=== PATIENT | female | born 1970 | race Caucasian/White ===

== ENCOUNTER → 2016-09-20 | Outpatient (CLI) | payer OTHER ==
[~2016-09-20] MED LIST: ACET-749 PO; AGM500 PO; ASCA500 PO; BCPILLS PO; DFL150 PO; IBUP600T44 PO
--- NOTE | 2016-09-21 14:08 | MAMMOGRAPHY REPORT ---
BILATERAL DIGITAL SCREENING MAMMOGRAM TOMOSYNTHESIS WITH CAD: 09/20/2016 CLINICAL HISTORY: Routine screening examination. TECHNIQUE: Breast tomosynthesis in addition to standard 2D mammography was performed. Current study was also evaluated with a Computer Aided Detection (CAD) system. COMPARISON: Comparison is made to exams dated: 09/17/2015 mammogram - [facility] a nd 02/22/[place] [facility] [place] BREAST COMPOSITION: The tissue of both breasts is extremely dense, which lowers the sensitivity of mammography. FINDINGS: No obvious mass, architectural distortion or cluster of new, suspicious microcalcificatio ns is seen. IMPRESSION: ACR BI-RADS CATEGORY 1: NEGATIVE There is no mammographic evidence of malignancy. A 1 year screening mammogram is recommended. The p atient will receive written notification of the results. Approximately 10% of breast cancers are not detected with mammography. A negative mammographic repor t should not delay biopsy if a clinically suggestive mass is present. Marva Mondragon M.D. ay/:09/20/2016 21:49:29 Operations Manager Station: Shala ANAYA(R)(Uday), [facility] letter sent: Normal 1/2 BI-RADS Code: ACR BI-RADS Category 1: Negative
== END | disposition home or self-care (01) ==
LOC: C.MAMM 11:12
PROVIDERS: ATTEND Obstetrics & Gynecology
DX: Z12.31 Encounter for screening mammogram for malignant neoplasm of breast (principal)

== ENCOUNTER → 2017-01-18 | Outpatient (CLI) | payer OTHER | END | disposition home or self-care (01) | LOC: C.PAPS 13:27 | PROVIDERS: ATTEND Obstetrics & Gynecology | DX: Z12.4 Encounter for screening for malignant neoplasm of cervix (principal) ==

== ENCOUNTER → 2017-10-30 | Outpatient (CLI) | payer BC ==
--- NOTE | 2017-10-31 15:16 | MAMMOGRAPHY REPORT ---
BILATERAL DIGITAL SCREENING MAMMOGRAM TOMOSYNTHESIS WITH CAD: 10/30/2017 CLINICAL HISTORY: Routine screening. Patient has no complaints. TECHNIQUE: Breast tomosynthesis in addition to standard 2D mammography was performed. Current study was also evaluated with a Computer Aided Detection (CAD) system. COMPARISON: Comparison is made to exams dated: 09/20/2016 mammogram, 09/17/2015 mammogram - [facility], and [facility]22/[place] [facility] [facility] BREAST COMPOSITION: The tissue of both breasts is extremely dense, which lowers the sensitivity of m ammography. FINDINGS: There is a cluster of microcalcifications in the upper outer middle one third of the left breast, for which additional spot magnification views are recommended. No other new suspicious mass, architectural distortion or cluster of microcalcifications is seen bila terally. IMPRESSION: ACR BI-RADS CATEGORY 0: INCOMPLETE EVALUATION: NEED ADDITIONAL IMAGING EVALUATION The cluster of microcalcifications in the left upper outer breast needs additional evaluation. The patient will be called to schedule an appointment. Approximately 10% of breast cancers are not detected with mammography. A negative mammographic report should not delay biopsy if a clinically suggestive mass is present. Marva Mondragon M.D. ay/:10/30/2017 16:04:07 Superintendent Communications: Korina ANAYA(Samson)(Uday)(JEANNINE), [facility] letter sent: Addl Imaging 0 BI-RADS Code: ACR BI-RADS Category 0: Incomplete Evaluation: Need Additional Imaging Evaluation
== END | disposition home or self-care (01) ==
LOC: C.MAMM 15:41
PROVIDERS: ATTEND Family Medicine
DX: Z12.31 Encounter for screening mammogram for malignant neoplasm of breast (principal); R92.0 Mammographic microcalcification found on diagnostic imaging of breast

== ENCOUNTER → 2017-11-09 | Outpatient (CLI) | payer BC ==
--- NOTE | 2017-11-09 15:17 | MAMMOGRAPHY REPORT ---
UNILATERAL LEFT DIGITAL DIAGNOSTIC MAMMOGRAM: 11/09/2017 CLINICAL HISTORY: Callback from screening mammogram for left breast calcifications. TECHNIQUE: Spot magnification left CC and ML views were obtained. COMPARISON: Comparison is made to exams dated: 10/30/2017 mammogram, 09/20/2016 mammogram, 09/17/2015 ma mmogram - [facility], and 02/22/2012 mammogram - [facility]. BREAST COMPOSITION: The tissue of the left breast is extremely dense, which lowers the sensitivity o f mammography. FINDINGS: There is a small 5 mm cluster of faint calcifications within the left upper outer quadrant which are new compared to prior exams. The calcifications differ slightly in shape and size and are somewhat linear in distribution. The calcifications are indeterminate and stereotactic biopsy is rec ommended for further evaluation. IMPRESSION: ACR BI-RADS CATEGORY 4: SUSPICIOUS New 5 mm cluster of calcifications in the left upper outer quadrant is indeterminate and stereotactic biopsy is recommended for further evaluation. The patient has been verbally notified of the results. She tentatively scheduled the biopsy before l eaving the department. Approximately 10% of breast cancers are not detected with mammography. A negative mammographic report should not delay biopsy if a clinically suggestive mass is present. Charito Abreu M.D. /:11/09/2017 10:32:39 Snowmobile Mechanic: Mayra Yun, [facility] letter sent: Abnormal 4/5 BI-RADS Code: ACR BI-RADS Category 4: Suspicious
== END | disposition home or self-care (01) ==
LOC: C.MAMM 10:13
PROVIDERS: ATTEND Family Medicine
DX: R92.0 Mammographic microcalcification found on diagnostic imaging of breast (principal)

== ENCOUNTER → 2017-12-01 | Outpatient (CLI) | payer BC ==
--- NOTE | 2017-12-01 10:40 | Discharge Instructions ---
Discharge Instructions Procedure Procedure Date: Dec 01, 2017. Reason for visit: Left Calcifications. Discharge Discharge Date: Dec 01, 2017. Discharge Diagnosis: status post breast biopsy Instructions Activity Recommendations: Additional Limitations (see below) Return to School/Work: no limitations Recommended Home Diet: No Limitations Provider Instructions: ACTIVITY RECOMMENDATIONS: * No lifting, pushing, pulling or exercising the affected side for three days. RETURN TO SCHOOL/WORK: * You may return to work/school after the procedure, but do not perform any strenuous activities for 24 to 48 hours. MEDICATIONS: * Tylenol (two 325 mg) every four to six hours if needed for mild pain (if not allergic to Tylenol). DIET: * Resume previous diet. SPECIAL CARE INSTRUCTIONS: * Keep biopsy site dry for 24 hours. May shower after 24 hours, but do not soak (bathe) incision. * May remove Tegaderm (plastic patch) tomorrow AFTER showering. * Leave the steri-strips on for one week. Allow the steri-strips to fall off by themselves. If not off after one week, you may remove them. You may place a Bandaid crosswise over the strips, if desired. * Apply ice 10 minutes on and 10 minutes off as needed. * Wear a bra at bedtime to sleep more comfortably for 2-3 days. * Your referring physician should have the results after approximately 5 to 7 business days. * Call for unusual bleeding, fever, drainage, etc or if you have any questions call during normal business hours or after hours call Dr Abreu, . FOLLOW UP VISIT: Follow-up with Referring Physician as scheduled. Allergies Coded Allergies: No Known Allergies (Verified , 09/24/09) Rosas Bustillos Recommendations: Call your doctor if: * Temperature above 101 degrees * Pain not relieved by pain medicine ordered * There is increased drainage or redness from any incision * You have any unanswered questions or concerns. Your Doctors Instructions noted above were prepared by provider Charito Abreu. Patient Signature Section: Patient Instructions Signature Page Ramila Garcia Patient (or Guardian) Signature/Date: I have read and understand the instructions given to me by my caregivers. Caregiver/RN/Doctor Signature/Date: The above-named patient and/or guardian has received patient instructions on this date. + Original Patient Signature Page (only) stays with chart. Please make copy for patient.
--- NOTE | 2017-12-01 15:35 | MAMMOGRAPHY REPORT ---
STEREOTACTIC GUIDED BIOPSY LEFT BREAST: 12/01/2017 CLINICAL HISTORY: Indeterminate calcifications in the left upper outer quadrant. PATIENT CONSENT: The procedure, risks, benefits, and alternatives of stereotactic biopsy with clip pl acement were discussed with the patient, and verbal and written consent was obtained. A timeout was performed immediately prior to the procedure. PROCEDURE DESCRIPTION: With stereotactic guidance, aseptic technique, and lidocaine as a local anesth etic (1% lidocaine to anesthetize the skin and 1% lidocaine with epinephrine to anesthetize the deepe r tissues), the calcifications of concern in the left upper outer quadrant were sampled multiple time s with a 9-gauge vacuum-assisted biopsy needle ([employer]). The path of approach was lateral. The specimen radiograph demonstrates calcifications to be present in the samples. The samples containin g calcifications (labeled "A") were from the samples without calcifications (labeled "B"). A metallic marker clip was placed at the biopsy site. This was confirmed on postprocedure mammogram s. Direct pressure was applied at the biopsy site and hemostasis was readily achieved. The patient tolerated the procedure without complication. She was given wound care instructions. COMPARISON: Comparison is made to exams dated: 11/09/2017 mammogram, 10/30/2017 mammogram, 09/17/2015 ma mmogram - [facility], and 02/22/2012 mammogram - [facility]. IMPRESSION: STEREOTACTIC GUIDED BIOPSY Stereotactic biopsy of indeterminate calcifications in the left upper outer quadrant, with clip place ment. The patient will receive pathology results from her referring provider. Charito Abreu M.D. ah/:12/01/2017 10:41:19 White Goods Appliance Tech: Ally ALONSO)(Uday), [facility]
--- NOTE | 2017-12-01 15:39 | MAMMOGRAPHY REPORT ---
UNILATERAL LEFT DIGITAL DIAGNOSTIC MAMMOGRAM: 12/01/2017 CLINICAL HISTORY: Status post left breast stereotactic biopsy. TECHNIQUE: Postprocedural left CC and ML views were obtained. COMPARISON: Comparison is made to exams dated: 10/30/2017 mammogram, 11/09/2017 mammogram, 09/17/2015 ma mmogram, and 09/20/2016 mammogram - [facility]. BREAST COMPOSITION: The tissue of the left breast is extremely dense, which lowers the sensitivity o f mammography. FINDINGS: A new biopsy marker clip is seen at the site of the biopsied calcifications in the left upp er outer quadrant. No significant postbiopsy hematoma is seen. IMPRESSION: POST PROCEDURE IMAGING FOR MARKER PLACEMENT New biopsy marker clip status post left breast stereotactic biopsy. Pathology results are pending. Approximately 10% of breast cancers are not detected with mammography. A negative mammographic report should not delay biopsy if a clinically suggestive mass is present. Charito Abreu M.D. ah/:12/01/2017 10:59:26 Kaiako Kura [place] Maori: Ally ANAYA(Samson)(Uday), [facility] BI-RADS Code: Post Procedure Imaging For Marker Placement
== END | disposition home or self-care (01) ==
LOC: C.MAMM 09:52
PROVIDERS: ATTEND Family Medicine
DX: D05.12 Intraductal carcinoma in situ of left breast (principal)

== ENCOUNTER → 2017-12-20 | Outpatient (CLI) | payer BC ==
[~2017-12-20] MED LIST changes: +GADAVIST IV PRN
--- NOTE | 2017-12-21 14:45 | MAMMOGRAPHY REPORT ---
BREAST MRI OF BOTH BREASTS : 12/20/2017 CLINICAL HISTORY: Recent stereotactic biopsy of calcifications in the left upper outer quadrant which yielded DCIS. COMPARISON: Comparison is made to exams dated: 12/01/2017 mammogram, 11/09/2017 mammogram, 12/01/2017 essence reotactic biopsy, 10/30/2017 mammogram, 09/20/2016 mammogram, and 09/17/2015 mammogram - [facility] [place]. Technique: The patient was placed prone in a dedicated breast imaging coil. Precontrast axial T1-apolinar ghted, axial T2-weighted fat saturation, and axial T1-weighted fat saturation images were obtained. After the administration of 5 mL of Gadavist IV contrast, sequential T1-weighted fat saturation image s were obtained. Subtraction images were obtained of the dynamic contrast enhanced sequences, and 3- D reformations were performed. The flexReceipts software was used for kinetic analysis. Findings: Right breast: There is moderate background parenchymal enhancement. There is a focal patchy area of non-mass enhancement within the right lower outer quadrant middle depth at approximately 8:00, measur ing 8 x 10 mm (series 1050 image 72). This demonstrates a persistent kinetic pattern. This could re present focal fibrocystic changes although second look ultrasound is recommended for further evaluati on. The remainder of the right breast demonstrates no suspicious enhancing masses or areas of abnorm al non-mass enhancement. Left breast: There is moderate background parenchymal enhancement. Clip artifact is seen within the left 2:00 breast middle depth related to prior stereotactic biopsy which yielded DCIS. There is ill- defined non-mass enhancement seen adjacent to the clip artifact, which measures 10 x 20 mm on the axi al images series 92981 image 52. On the sagittal images the enhancement extends anterior/inferior an d posterior/superior to the clip in a somewhat linear ductal-type distribution, with total extent mingo suring approximately 3.5 cm on series 6 image 25. The enhancement is nonspecific and could represent postbiopsy changes and/or residual DCIS. The finding demonstrates a persistent kinetic pattern. A circumscribed enhancing oval 4 mm mass is seen within the left 9:00 breast middle depth, which demons trates a persistent kinetic pattern and may represent a fibroadenoma although second look ultrasound is recommended (series 63139 image 68). A patchy focal area of non-mass enhancement within the left 3:00 breast middle depth is also evident, which measures approximately 9 x 15 mm and demonstrates a p ersistent kinetic pattern (series 66801 image 68). While this could represent fibrocystic changes, a dditional imaging evaluation with second look ultrasound is recommended. There is no evidence of axillary adenopathy. The chest wall structures are negative. Extramammary s oft tissues are unremarkable. IMPRESSION: ACR BI-RADS CATEGORY 0: INCOMPLETE EVALUATION: NEED ADDITIONAL IMAGING EVALUATION 1. Ill-defined non-mass enhancement adjacent to the biopsy marker clip in the left upper outer quadr ant at the site of the recent biopsy which yielded DCIS. The enhancement measures 3.5 x 1.0 x 2.0 cm and is nonspecific, with differential including postbiopsy changes and/or DCIS. Surgical excision i s recommended. 2. Circumscribed enhancing 4 mm mass in the left 9:00 breast and patchy areas of non-mass enhancemen t within the right 8:00 and left 3:00 breast, for which second look ultrasound is recommended for fur ther evaluation. If corresponding suspicious abnormalities are seen on ultrasound, then ultrasound-g uided biopsy is recommended (1 hour time slot). Charito Abreu M.D. ah/:12/20/2017 16:23:16 Cable Cutter And Swager: human performance professor, [facility] letter sent: Addl Imaging 0 BI-RADS Code: ACR BI-RADS Category 0: Incomplete Evaluation: Need Additional Imaging Evaluation
== END | disposition home or self-care (01) ==
LOC: C.MRI 06:39
PROVIDERS: ATTEND Surgery
DX: D05.12 Intraductal carcinoma in situ of left breast (principal)

== ENCOUNTER → 2018-01-05 | Outpatient (CLI) | payer BC ==
[~2018-01-05] MED LIST changes: -ACET-749 PO; +ACET300T3 PO; -GADAVIST IV PRN
--- NOTE | 2018-01-08 07:45 | MAMMOGRAPHY REPORT ---
ULTRASOUND OF BOTH BREASTS: 01/05/2018 CLINICAL HISTORY: Circumscribed enhancing 4 mm mass in the left 9:00 breast and patchy areas of non-m ass enhancement within the right 8 and left 3:00 breast seen on recent breast MRI, for which second l ook ultrasound was recommended. Known biopsy-proven left breast DCIS. COMPARISON: Comparison is made to exams dated: 12/20/2017 breast MRI, 12/01/2017 mammogram, 12/01/2017 st ereotactic biopsy, 11/09/2017 mammogram, 10/30/2017 mammogram, and 09/20/2016 mammogram - [facility]. TECHNIQUE: Real-time targeted ultrasound of both breasts was performed. FINDINGS: Real-time, high-resolution targeted ultrasound was performed of the left 8 to 9:00 breast i n the region of the circumscribed enhancing 4 mm mass seen on breast MRI. Ultrasound was also perfor med of the left 3 to 4:00 breast and right 8:00 breast in the areas of non-mass enhancement seen on t he recent breast MRI. Sonographically normal tissue is seen in all of these regions, without evidenc e of a suspicious mass or other suspicious sonographic abnormality. No sonographic correlates for th e breast MRI findings are seen. Although the circumscribed enhancing left 9:00 breast mass may repre sent a fibroadenoma and although the patchy areas of non-mass enhancement seen bilaterally may repres ent fibrocystic changes, the areas remain indeterminate and MRI guided core needle biopsy is recommen ded for further evaluation. IMPRESSION: ACR BI-RADS CATEGORY 4: SUSPICIOUS - FOLLOW-UP RECOMMENDED No sonographic correlates are seen for the enhancing mass in the left 9:00 breast and patchy non-mass enhancement in the right 8:00 and left 3:00 breast. Although the findings may represent fibroadenom as and/or fibrocystic changes, the findings remain indeterminate and MRI guided core needle biopsy is recommended for further evaluation. A phone call was made to the physician's office to confirm faxed results were received. The patient was verbally notified of the results. She reports that she is scheduled for surgery in 5 days, and w e are unable to perform the MRI guided biopsies before her scheduled surgery. She tentatively schedu led the biopsies for a future date, but I told her to speak with Dr. Hubbard's office to determine if her surgery should be rescheduled or if the biopsies could be performed after her sugery. Charito Abreu M.D. ah/:01/05/2018 13:30:54 Clamshell Engineer: Meseret ALONSO)Loy), [facility] letter sent: Abnormal 4/5 BI-RADS Code: ACR BI-RADS Category 4: Suspicious
== END | disposition home or self-care (01) ==
LOC: C.MAMM 12:49
PROVIDERS: ATTEND Surgery
DX: D05.12 Intraductal carcinoma in situ of left breast (principal); N63.20 Unspecified lump in the left breast, unspecified quadrant